=== PATIENT | male | born 1990 | race Two or more races ===

== ENCOUNTER 2023-07-15 02:11 | Emergency (ER) | payer MEDICAID ==
[~2023-07-15] VITALS: Ht 177.8 cm; Wt 65.9 kg
[2023-07-15 02:46] VITALS: BP 123/89; PULSE 99; RESP 18; TEMP 98.6; O2SAT 99
== END 2023-07-15 02:49 | disposition home or self-care (01) ==
LOC: ER 02:12
DX: F10.10 Alcohol abuse, uncomplicated (principal)
CPT/HCPCS: 99283